=== PATIENT | female | born 1980 | race Hispanic/Latino ===

== ENCOUNTER 2017-12-05 07:47 | Day surgery (SDC) | payer MEDICAID ==
[~2017-12-05] VITALS: Ht 167.6 cm; Wt 91.4 kg
[~2017-12-05 07:47] MED LIST: ERGO500014 PO; SODIUM CHLORIDE 0.9% 1000ML 1,000 ML IV ONE
[2017-12-05 08:37] VITALS: BP 120/72
[2017-12-05] MEDS ORDERED: PROPOFOL 1000 MG/100 ML 100 ML IV ONE (09:11)
[2017-12-05 09:37] VITALS: BP 121/62
== END 2017-12-05 10:07 | disposition home or self-care (01) ==
LOC: ENDO 07:47 → DAH 07:47 → ENDO 10:07
PROVIDERS: ATTEND Internal Medicine Gastroenterology
DX: K63.5 Polyp of colon (principal); K62.1 Rectal polyp; Z79.899 Other long term (current) drug therapy; Z68.36 Body mass index [BMI] 36.0-36.9, adult; Z90.49 Acquired absence of other specified parts of digestive tract; Z88.2 Allergy status to sulfonamides; E66.9 Obesity, unspecified
CPT/HCPCS: 36415; 45380; 84703; 88305; A4606; J2704; J7030

== ENCOUNTER 2017-12-19 05:30 | Day surgery (SDC) | payer MEDICAID ==
[~2017-12-19] VITALS: Ht 162.6 cm; Wt 91.9 kg
[~2017-12-19 05:30] MED LIST changes: -SODIUM CHLORIDE 0.9% 1000ML 1,000 ML IV ONE
[2017-12-19] MEDS ORDERED: SODIUM CHLORIDE 0.9% 1000ML 1,000 ML IV ONE (05:50)
[2017-12-19 06:06] VITALS: BP 127/76
[2017-12-19] MEDS ORDERED: PROPOFOL 10 MG/ML 20ML VIAL IV ONE (06:45)
== END 2017-12-19 07:30 | disposition home or self-care (01) ==
LOC: DAH 05:30 → ENDO 05:30
PROVIDERS: ATTEND Internal Medicine Gastroenterology
DX: K29.50 Unspecified chronic gastritis without bleeding (principal); K21.0 Gastro-esophageal reflux disease with esophagitis; E66.9 Obesity, unspecified; Z68.35 Body mass index [BMI] 35.0-35.9, adult; Z79.899 Other long term (current) drug therapy; Z88.2 Allergy status to sulfonamides; Z90.49 Acquired absence of other specified parts of digestive tract; Z98.890 Other specified postprocedural states
CPT/HCPCS: 43239; 81025; 88305; 88312; A4606; J2704; J7030

== ENCOUNTER 2022-03-15 23:17 | Emergency (ER) | payer MEDICAID ==
[~2022-03-15] VITALS: Ht 160 cm; Wt 89.4 kg
[~2022-03-15 23:17] MED LIST changes: +CEPH500B PO; +KETO10 PO; +TAMS-1 PO
[2022-03-15 23:35] VITALS: BP 150/80
[2022-03-16 00:24] LABS: BILIRUBIN,URINE NEGATIVE (NEGATIVE); GLUCOSE, URINE (UA) NEGATIVE (NEGATIVE); KETONES,URINE NEGATIVE (NEGATIVE); LEUKOCYTE ESTERASE ,URINE MODERATE (NEGATIVE); NITRATE,URINE NEGATIVE (NEGATIVE); OCCULT BLOOD,URINE MODERATE (NEGATIVE); PROTEIN,URINE TRACE mg/dL (NEGATIVE); UROBILINOGEN,URINE 0.2 mg/dL (0.2-1.0)
[2022-03-16 00:27] LABS: HCG,QUALITATIVE URINE NEGATIVE (NEGATIVE)
[2022-03-16 00:28] LABS: APPEARANCE,URINE CLOUDY (CLEAR); COLOR,URINE ORANGE (YELLOW)
[2022-03-16] MEDS ORDERED: PHENAZOPYRIDINE HCL 200 MG TABLET PO ONE (00:30)
[2022-03-16] MEDS ORDERED: HYDROCODONE/ACETAMINOPHEN 10/325 MG TAB PO ONE (00:30)
[2022-03-16] MEDS ORDERED: KETOROLAC 60 MG VIAL (30MG/ML) IM ONE (00:30)
[2022-03-16 00:34] LABS: RBC,URINE TNTC /HPF (0-1)
[2022-03-16 00:35] LABS: BACTERIA,URINE None Seen /HPF (None Seen)
[2022-03-16 00:36] LABS: SQUAMOUS EPITHELIAL CELL,UR Few /HPF (0-2)
[2022-03-16] MEDS ORDERED: CEFTRIAXONE 1G VIAL IM ONE (01:00)
[2022-03-16] MEDS ORDERED: PHEN-847 PO (01:13)
[2022-03-16] MEDS ORDERED: ACET-2079 PO (01:13)
== END 2022-03-16 01:44 | disposition home or self-care (01) ==
LOC: EDH 23:17
DX: N20.0 Calculus of kidney (principal); N32.89 Other specified disorders of bladder; N39.0 Urinary tract infection, site not specified; E66.9 Obesity, unspecified; Z88.2 Allergy status to sulfonamides; Z79.1 Long term (current) use of non-steroidal anti-inflammatories (NSAID); Z90.49 Acquired absence of other specified parts of digestive tract; Z68.34 Body mass index [BMI] 34.0-34.9, adult
CPT/HCPCS: 99284; 87088; 81001; 81025; 96372 ×2; J0696; J1885